=== PATIENT | male | born 1995 | race Caucasian/White ===

== ENCOUNTER 2023-08-21 13:13 | Emergency (ER) | payer OTHER, SELFPAY ==
[2023-08-21 13:16] VITALS: BP 115/90
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
== END 2023-08-21 17:19 | disposition home or self-care (01) ==
LOC: EMR 13:13
PROVIDERS: EMERGENCY PHYSICIAN Emergency Medicine
DX: M62.838 Other muscle spasm (principal); M54.6 Pain in thoracic spine
CPT/HCPCS: 99283; 72050; 72072